=== PATIENT | male | born 1960 | race Caucasian/White ===

== ENCOUNTER 2021-08-24 15:12 | Emergency (ER) | payer BC, OTHER ==
[2021-08-24] MEDS ORDERED: HYDROmorphone 1 MG/ML Syringe IVPUSH ONE (15:43)
[2021-08-24] MEDS ORDERED: Ondansetron 4 MG/2 ML SDV IVPUSH ONE (15:44)
[2021-08-24] MEDS ORDERED: Sodium Chloride 0.9% 1,000 ML IV SCH ×2 (15:45→18:15)
[2021-08-24] MEDS ORDERED: Tamsulosin 0.4 MG Cap.ER PO ONE (15:46)
[2021-08-24] MEDS ORDERED: Ibuprofen 800 MG Tab PO ONE (18:03)
== END 2021-08-24 18:31 | disposition home or self-care (01) ==
LOC: JP.ED 15:12
DX: N20.0 Calculus of kidney (principal); E78.00 Pure hypercholesterolemia, unspecified; Z86.16 Personal history of COVID-19; Z79.899 Other long term (current) drug therapy
CPT/HCPCS: 74176; 81001; 96361; 96374; 96375; 99284; A9270; J1170; J2405; J7030